=== PATIENT | female | born 1985 | race Caucasian/White ===

== ENCOUNTER 2019-08-20 10:23 | Inpatient (IN) | payer OTHER ==
[~2019-08-20] VITALS: Ht 165.1 cm; Wt 65.8 kg
[2019-08-20] VITALS (8 sets, daily range): BP systolic 85–115; BP diastolic 51–68
[~2019-08-20 10:23] MED LIST: ALBUTEROL2.5 MG/3 M INH
--- NOTE | 2019-08-20 10:26 | NUR ---
ED Nurse Note: Pt BIBA from the street due to behavioral complaint. Per paramedics, pt was crawling on the street, acting bizzare. Upon arrival, pt acting restless, present with flights of ideas, stated " I am here, you are here. I am in this room, you are in this room" Only answers some questions appropriately. When asked, pt denies any SI/HI. Belongings are in locker #3. Vital signs stable at this time. Will cont to monitor.
[2019-08-20] MEDS ORDERED: Haloperidol 5mg/ml Inj IM ONE (10:30)
[2019-08-20] MEDS ORDERED: DiphenhydrAMINE 50mg/ml Inj IVP ONE (10:30)
[2019-08-20] MEDS ORDERED: LORazepam Inj 2mg/ml 1ml IV ONE (10:30)
--- NOTE | 2019-08-20 10:50 | NUR ---
PATIENT IS SLEEPING SINCE THE MEDICATION SO NO SITTER PROVIDED
--- NOTE | 2019-08-20 11:21 | NUR ---
ED Nurse Note: Potassium level 2.3, ERMD made aware.
[2019-08-20 11:29] LABS: HEMATOCRIT 34.9 % (37.0-47.0); HEMOGLOBIN 11.8 G/DL (12.0-16.0); MEAN CORPUSCULAR VOLUME 93 FL (80-99); PLATELET COUNT 305 K/UL (150-450); RED BLOOD COUNT 3.74 M/UL (4.20-5.40); RED CELL DISTRIBUTION WIDTH 11.8 % (11.6-14.8); WHITE BLOOD COUNT 19.6 K/UL (4.8-10.8)
[2019-08-20 11:30] LABS: APPEARANCE,URINE CLEAR; BILIRUBIN, URINE NEGATIVE (NEGATIVE); GLUCOSE, URINE (UA) NEGATIVE (NEGATIVE); KETONES,URINE 4+ (NEGATIVE); LEUKOCYTE ESTERASE ,URINE 1+ (NEGATIVE); NITRITE,URINE NEGATIVE (NEGATIVE); PH,URINE 5 (4.5-8.0); PROTEIN,URINE 2+ (NEGATIVE); UROBILINOGEN,URINE 1 MG/DL (0.0-1.0)
[2019-08-20 11:34] LABS: COLOR,URINE YELLOW
[2019-08-20 11:52] LABS: ALANINE AMINOTRANSFERASE 28 U/L (12-78); ALBUMIN 3.3 G/DL (3.4-5.0); ALBUMIN/GLOBULIN RATIO 0.9 (1.0-2.7); ALKALINE PHOSPHATASE 57 U/L (46-116); ANION GAP 3 mmol/L (5-15); ASPARTATE AMINO TRANSFERASE 39 U/L (15-37); BILIRUBIN,TOTAL 0.6 MG/DL (0.2-1.0); BLOOD UREA NITROGEN 8 mg/dL (7-18); CALCIUM 8.6 MG/DL (8.5-10.1); CARBON DIOXIDE 34 MMOL/L (21-32); CHLORIDE 98 MMOL/L (98-107); CREATININE 0.5 MG/DL (0.55-1.30); SODIUM 135 MMOL/L (136-145)
[2019-08-20 11:56] LABS: POTASSIUM 2.3 MMOL/L (3.5-5.1)
--- NOTE | 2019-08-20 12:00 | NUR ---
continues to sleep
--- NOTE | 2019-08-20 13:26 | Emergency Room Report ---
History of Present Illness General Chief Complaint: Behavioral Complaint Source: Patient (Vincent Mcguire DO) Present Illness HPI Patient presents with paramedics for reports of agitation Upon arrival the patient has bizarre thought process agitated flight of thought Appears disheveled Obtaining history from the patient was difficult Patient would not focus to answer questions appropriately There was no reports of vomiting or diarrhea denies any chest pain otherwise history of present illness remains significantly limited (BravoVincent lim ) Allergies: Coded Allergies: CHLORPROMAZINE (Verified Allergy, Unknown, 08/20/19) Patient History Past Medical History: see triage record Last Menstrual Period: Unknown Now: No - Unknown Reviewed Nursing Documentation: PMH: Agreed; PSxH: Agreed (BravoVincent lim ) Nursing Documentation-PMH Past Medical History Deferred: Pt Cognitively Impaired Past Medical History: No Stated History (ValentinangeliraphaelVincent JAMISON) Review of Systems All Other Systems: limited (BravoVincent lim ) Physical Exam Vital Signs Date Time Temp Pulse Resp B/P (MAP) Pulse Ox O2 Delivery O2 Flow Rate FiO2 08/20/19 10:15 97.9 90 16 122/84 (97) 98 Ambu-Bag Sp02 EP Interpretation: reviewed, normal General Appearance: mild distress - Appears disheveled and agitated Head: normocephalic, atraumatic Eyes: bilateral eye PERRL, bilateral eye EOMI ENT: dry mucus membranes Neck: supple Respiratory: lungs clear, no respiratory distress, no retraction Cardiovascular #1: regular rate, rhythm Gastrointestinal: non tender, soft Genitourinary: no CVA tenderness Musculoskeletal: normal inspection Neurologic: alert, responsive Psychiatric: anxious Skin: no rash - Appears disheveled Lymphatic: no adenopathy (BravoVincent lim ) Medical Decision Making Diagnostic Impression: Primary Impression: Hypokalemia Additional Impression: Agitation ER Course Given the above history exam and presentation multiple differentials and consideration patient had extensive blood work initiated for further medical clearance She does show significant abnormalities including elevated white blood cell count potassium level is low patient is having these addressed Was positive for amphetamine and possible demargination causing elevated white blood cell count is entertained I do not see any obvious source of obvious infection Meningitis and encephalopathy is also entertained however less likely No obvious rashes noted patient is further hydrated and will have repeat blood work Labs Test 08/20/19 11:11 White Blood Count 19.6 K/UL (4.8-10.8) Red Blood Count 3.74 M/UL (4.20-5.40) Hemoglobin 11.8 G/DL (12.0-16.0) Hematocrit 34.9 % (37.0-47.0) Mean Corpuscular Volume 93 FL (80-99) Mean Corpuscular Hemoglobin 31.5 PG (27.0-31.0) Mean Corpuscular Hemoglobin Concent 33.8 G/DL (32.0-36.0) Red Cell Distribution Width 11.8 % (11.6-14.8) Platelet Count 305 K/UL (150-450) Mean Platelet Volume 7.5 FL (6.5-10.1) Neutrophils (%) (Auto) % (45.0-75.0) Lymphocytes (%) (Auto) % (20.0-45.0) Monocytes (%) (Auto) % (1.0-10.0) Eosinophils (%) (Auto) % (0.0-3.0) Basophils (%) (Auto) % (0.0-2.0) Differential Total Cells Counted 100 Neutrophils % (Manual) 84 % (45-75) Lymphocytes % (Manual) 12 % (20-45) Monocytes % (Manual) 4 % (1-10) Eosinophils % (Manual) 0 % (0-3) Basophils % (Manual) 0 % (0-2) Band Neutrophils 0 % (0-8) Platelet Estimate Adequate Platelet Morphology Normal Polychromasia 1+ Urine Color Yellow Urine Appearance Clear Urine pH 5 (4.5-8.0) Urine Specific [place] 1.020 (1.005-1.035) Urine Protein 2+ (NEGATIVE) Urine Glucose (UA) Negative (NEGATIVE) Urine Ketones 4+ (NEGATIVE) Urine Blood 1+ (NEGATIVE) Urine Nitrite Negative (NEGATIVE) Urine Bilirubin Negative (NEGATIVE) Urine Urobilinogen 1 MG/DL (0.0-1.0) Urine Leukocyte Esterase 1+ (NEGATIVE) Urine RBC 2-4 /HPF (0 - 2) Urine WBC 2-4 /HPF (0 - 2) Urine Squamous Epithelial Cells Few /LPF (NONE/OCC) Urine Amorphous Sediment Few /LPF (NONE) Urine Bacteria Few /HPF (NONE) Urine Mucus Moderate /LPF (NONE/OCC) Urine HCG, Qualitative Negative (NEGATIVE) Sodium Level 135 MMOL/L (136-145) Potassium Level 2.3 MMOL/L (3.5-5.1) Chloride Level 98 MMOL/L (98-107) Carbon Dioxide Level 34 MMOL/L (21-32) Anion Gap 3 mmol/L (5-15) Blood Urea Nitrogen 8 mg/dL (7-18) Creatinine 0.5 MG/DL (0.55-1.30) Estimat Glomerular Filtration Rate > 60 mL/min (>60) Glucose Level 98 MG/DL (74-106) Calcium Level 8.6 MG/DL (8.5-10.1) Total Bilirubin 0.6 MG/DL (0.2-1.0) Aspartate Amino Transf (AST/SGOT) 39 U/L (15-37) Alanine Aminotransferase (ALT/SGPT) 28 U/L (12-78) Alkaline Phosphatase 57 U/L (46-116) Total Protein 7.0 G/DL (6.4-8.2) Albumin 3.3 G/DL (3.4-5.0) Globulin 3.7 g/dL Albumin/Globulin Ratio 0.9 (1.0-2.7) Salicylates Level 0.9 ug/mL (2.8-20) Urine Opiates Screen Negative (NEGATIVE) Acetaminophen Level < 2 MCG/ML (10-30) Urine Barbiturates Screen Negative (NEGATIVE) Phencyclidine (PCP) Screen Negative (NEGATIVE) Urine Amphetamines Screen Positive (NEGATIVE) Urine Benzodiazepines Screen Negative (NEGATIVE) Urine Cocaine Screen Negative (NEGATIVE) Urine Marijuana (THC) Screen Negative (NEGATIVE) Serum Alcohol < 3 mg/dL (Vincent Mcguire DO) Last Vital Signs Date Time Temp Pulse Resp B/P (MAP) Pulse Ox O2 Delivery O2 Flow Rate FiO2 08/20/19 12:18 99 19 85/51 95 Room Air 08/20/19 10:15 97.9 Status: improved (Vincent Mcguire DO) Reevaluation Time: 17:05 Reevaluation Impression Assumed care of the patient from Dr. Mcguire at approximately 1400. Briefly this is a 33-year-old female who presented for evaluation of agitation. She was given Ativan and Haldol for sedation but was found to have an elevated white count and hypokalemia with the initial reading of 2.3. She is receiving IV fluids, potassium IV with plan to repeat CBC and BMP. Chest x-ray was performed and is now returned showing no obvious signs of infection. Repeat labs show persistently low potassium though white blood cell count has improved. She is tested positive for amphetamines. She will be admitted for hypokalemia work-up on telemetry. (Alonso Flowers MD) Disposition: ADMITTED INPATIENT Condition: Serious Referrals: NOT CHOSEN IPA/,REFERRING (PCP) Vincent Mcguire DO Aug 20, 2019 13:26 Alonso Flowers MD Aug 20, 2019 17:07
--- NOTE | 2019-08-20 15:01 | Diagnostic Imaging Report ---
EXAM: XR Chest, 1 View CLINICAL HISTORY: COUGH TECHNIQUE: Frontal view of the chest. COMPARISON: No relevant prior studies available. FINDINGS: Lungs: Mild atelectasis left lower lung. Lungs otherwise clear. Pleural space: Unremarkable. No pneumothorax. Heart: Unremarkable. No cardiomegaly. Mediastinum: Unremarkable. Bones joints: Unremarkable. IMPRESSION: Mild atelectasis left lower lung. Lungs otherwise clear.
--- NOTE | 2019-08-20 15:54 | NUR ---
ED Nurse Note: Pt sleeping comfortably in bed, easily arousable, lung sounds clear. Vital signs stable. NAD. Will cont to monitor.
--- NOTE | 2019-08-20 15:55 | NUR ---
ED Nurse Note: Blood drawn and sent to lab.
--- NOTE | 2019-08-20 16:00 | NUR ---
ED Nurse Note: Second Potassium 2.6, Dr Flowers notified. Awaiting for further order.
[2019-08-20 16:23] LABS: ANION GAP 4 mmol/L (5-15); BLOOD UREA NITROGEN 6 mg/dL (7-18); CALCIUM 7.5 MG/DL (8.5-10.1); CARBON DIOXIDE 28 MMOL/L (21-32); CHLORIDE 107 MMOL/L (98-107); CREATININE 0.4 MG/DL (0.55-1.30); SODIUM 141 MMOL/L (136-145)
[2019-08-20 16:26] LABS: BASOPHILS % (AUTO) 0.9 % (0.0-2.0); EOSINOPHILS % (AUTO) 0.8 % (0.0-3.0); HEMATOCRIT 27.9 % (37.0-47.0); LYMPHOCYTES % (AUTO) 27.4 % (20.0-45.0); MEAN CORPUSCULAR VOLUME 90 FL (80-99); MONOCYTES % (AUTO) 10.9 % (1.0-10.0); NEUTROPHILS % (AUTO) 60.1 % (45.0-75.0); PLATELET COUNT 254 K/UL (150-450); WHITE BLOOD COUNT 14.2 K/UL (4.8-10.8)
[2019-08-20 16:28] LABS: POTASSIUM 2.6 MMOL/L (3.5-5.1)
--- NOTE | 2019-08-20 17:21 | NUR ---
ED Nurse Note: Pt is still sleeping, easily arousable. Breathinf even, unlabored. NAD. Will cont to monitor.
--- NOTE | 2019-08-20 18:30 | NUR ---
ED Nurse Note: Pt is in NO acute distress. Vital signs still stable. Comfortably on bed. Ridge and juice offered.
--- NOTE | 2019-08-20 19:03 | NUR ---
ED Nurse Note: Report given to RAAD Vaca
--- NOTE | 2019-08-20 19:05 | NUR ---
ED Nurse Note: Got report from Shraddha Feliciano RN. Patient is sleeping, calm and cooperative, no acute disstress noticed.
--- NOTE | 2019-08-20 21:15 | NUR ---
NURSE NOTES: Received report from RAAD Vaca. Patient was transferred from ED to telemetry via gurney with phototypesetting equipment monitor, without any incident. Patient is awake, lying in semi lópez's; resting comfortably. A/Ox3. Denies pain at this time. No signs of acute distress noted. Placed tele box, SR on the monitor,94bpm. Body assessment done with no skin issues. Belongings list checked with transferring RN. Paged Dr. Esposito for admitting orders, awaiting for callback. C Addendum: 08/20/19 at 2236 by Xenia Vizcarra RN Comfort care provided. Will continue to monitor. Addendum: 08/21/19 at 0739 by Xenia Vizcarra RN Sitter at bedside.
--- NOTE | 2019-08-20 21:32 | NUR ---
ED Nurse Note: Patient was admited to Tele due to hypokalemia. Patient was transfered to the unit via gurney by ACLS protocol, with all belongings. Patient AAO x3, VSS at this time, skin is dry warm to touch.
[2019-08-20] MEDS ORDERED: D5 1/2NS 1,000 ML IV SCH (23:00)
[2019-08-20] MEDS ORDERED: LORazepam 1mg tab ORAL PRN (23:00)
[2019-08-21] VITALS: BP 110/70
[2019-08-21] MEDS: D5 1/2NS w/KCl 40meq 1000ml 1,000 ML IV SCH ×2 (00:33→12:37)
--- NOTE | 2019-08-21 01:55 | NUR ---
NURSE NOTES: Resting throughout the night. No significant change of condition noted. Will continue to monitor.
--- NOTE | 2019-08-21 02:22 | NUR ---
Bren at bedside. Addendum: 08/21/19 at 0739 by Xenia Vizcarra RN Wrong time.
[2019-08-21 04:00] VITALS: BP 106/57
--- NOTE | 2019-08-21 07:20 | NUR ---
HAND-OFF: Report given to RAAD Wilson. Plan of care endorsed.
--- NOTE | 2019-08-21 07:20 | NUR ---
NURSE NOTES: I received the patient resting in bed. Sitter at the patient's bedside. Patient does not display any signs of distress or SOB. Bed in the lowest position and call light within reach. I will continue to monitor the patient and implement care.
[2019-08-21 07:39] LABS: BASOPHILS % (AUTO) 1.3 % (0.0-2.0); EOSINOPHILS % (AUTO) 3.2 % (0.0-3.0); HEMATOCRIT 28.7 % (37.0-47.0); HEMOGLOBIN 10.1 G/DL (12.0-16.0); LYMPHOCYTES % (AUTO) 42.8 % (20.0-45.0); MEAN CORPUSCULAR VOLUME 94 FL (80-99); MONOCYTES % (AUTO) 10.8 % (1.0-10.0); NEUTROPHILS % (AUTO) 41.8 % (45.0-75.0); PLATELET COUNT 248 K/UL (150-450); RED BLOOD COUNT 3.07 M/UL (4.20-5.40); RED CELL DISTRIBUTION WIDTH 12.2 % (11.6-14.8); WHITE BLOOD COUNT 8.6 K/UL (4.8-10.8)
[2019-08-21 07:54] LABS: % IRON SATURATION 9 % (15-50); IRON 20 ug/dL (50-175); TOTAL IRON BINDING CAPACITY 234 ug/dL (250-450)
[2019-08-21 08:00] VITALS: BP 104/62
[2019-08-21 08:13] LABS: ALANINE AMINOTRANSFERASE 28 U/L (12-78); ALBUMIN 2.4 G/DL (3.4-5.0); ALBUMIN/GLOBULIN RATIO 0.8 (1.0-2.7); ALKALINE PHOSPHATASE 48 U/L (46-116); ANION GAP 7 mmol/L (5-15); ASPARTATE AMINO TRANSFERASE 29 U/L (15-37); BILIRUBIN,TOTAL 0.3 MG/DL (0.2-1.0); BLOOD UREA NITROGEN 6 mg/dL (7-18); CALCIUM 7.6 MG/DL (8.5-10.1); CARBON DIOXIDE 28 MMOL/L (21-32); CHLORIDE 109 MMOL/L (98-107); CREATININE 0.5 MG/DL (0.55-1.30); FERRITIN 42 NG/ML (8-388); PHOSPHORUS 2.7 MG/DL (2.5-4.9); SODIUM 144 MMOL/L (136-145)
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
--- NOTE | 2019-08-21 11:26 | Consultation ---
Consult Note Consult Note asked to manage hypokalemia ER: Chief Complaint: Behavioral Complaint Patient presents with paramedics for reports of agitation Upon arrival the patient has bizarre thought process agitated flight of thought Appears disheveled Obtaining history from the patient was difficult Patient would not focus to answer questions appropriately There was no reports of vomiting or diarrhea denies any chest pain otherwise history of present illness remains significantly limited Allergies: CHLORPROMAZINE (Verified Allergy, Unknown, 08/20/19) Past Medical History Deferred: Pt Cognitively Impaired Past Medical History: No Stated History Assessment/Plan HypoKalemia Amphetamin abuse Anemia UTI Psych history? K supplement antibiotics Per Psych to Med Surg Steffen Ramos MD Aug 21, 2019 11:26
[2019-08-21 12:00] VITALS: BP_SYST 104; BP_SYST 120; BP_DIAS 63; BP_DIAS 71
[2019-08-21] MEDS ORDERED: LORazepam 1mg tab ORAL PRN (12:15)
--- NOTE | 2019-08-21 15:03 | Cardiac Electrophysiology PN ---
Subjective Subjective [id number] Objective Last 24 Hour Vital Signs Date Time Temp Pulse Resp B/P (MAP) Pulse Ox O2 Delivery O2 Flow Rate FiO2 08/21/19 12:00 97.0 89 20 104/63 (77) 100 08/21/19 12:00 96 08/21/19 09:00 Room Air 08/21/19 08:00 98.3 101 20 104/62 (76) 98 08/21/19 07:56 99 08/21/19 04:00 97.9 94 20 106/57 (73) 97 08/21/19 04:00 88 08/21/19 00:43 Room Air 08/21/19 00:00 98.2 92 19 110/70 (83) 97 08/21/19 00:00 87 08/20/19 21:23 98.0 84 18 96/64 99 Room Air 08/20/19 21:23 98.0 84 18 96/64 99 Room Air 08/20/19 21:15 94 08/20/19 21:15 98.4 82 20 98/60 (73) 95 08/20/19 20:17 98.0 84 18 96/64 99 Room Air 08/20/19 18:49 98.0 85 20 95/63 99 Room Air 08/20/19 18:03 98.0 93 19 95/63 97 Room Air 08/20/19 16:00 97.9 79 21 101/65 100 Room Air Intake and Output 08/20/19 08/21/19 18:59 06:59 Intake Total 1200 ml 453.75 ml Balance 1200 ml 453.75 ml Intake Oral 120 ml IV Total 1200 ml 333.75 ml # Voids 1 1 # Bowel Movements 1 Laboratory Tests Test 08/20/19 16:00 08/21/19 06:14 White Blood Count 14.2 K/UL (4.8-10.8) H 8.6 K/UL (4.8-10.8) Red Blood Count 3.10 M/UL (4.20-5.40) L 3.07 M/UL (4.20-5.40) L Hemoglobin 10.0 G/DL (12.0-16.0) L 10.1 G/DL (12.0-16.0) L Hematocrit 27.9 % (37.0-47.0) L 28.7 % (37.0-47.0) L Mean Corpuscular Volume 90 FL (80-99) 94 FL (80-99) Mean Corpuscular Hemoglobin 32.1 PG (27.0-31.0) H 32.9 PG (27.0-31.0) H Mean Corpuscular Hemoglobin Concent 35.7 G/DL (32.0-36.0) 35.1 G/DL (32.0-36.0) Red Cell Distribution Width 11.0 % (11.6-14.8) L 12.2 % (11.6-14.8) Platelet Count 254 K/UL (150-450) 248 K/UL (150-450) Mean Platelet Volume 7.1 FL (6.5-10.1) 7.0 FL (6.5-10.1) Neutrophils (%) (Auto) 60.1 % (45.0-75.0) 41.8 % (45.0-75.0) L Lymphocytes (%) (Auto) 27.4 % (20.0-45.0) 42.8 % (20.0-45.0) Monocytes (%) (Auto) 10.9 % (1.0-10.0) H 10.8 % (1.0-10.0) H Eosinophils (%) (Auto) 0.8 % (0.0-3.0) 3.2 % (0.0-3.0) H Basophils (%) (Auto) 0.9 % (0.0-2.0) 1.3 % (0.0-2.0) Sodium Level 141 MMOL/L (136-145) 144 MMOL/L (136-145) Potassium Level 2.6 MMOL/L (3.5-5.1) *L 3.0 MMOL/L (3.5-5.1) L Chloride Level 107 MMOL/L (98-107) 109 MMOL/L (98-107) H Carbon Dioxide Level 28 MMOL/L (21-32) 28 MMOL/L (21-32) Anion Gap 4 mmol/L (5-15) L 7 mmol/L (5-15) Blood Urea Nitrogen 6 mg/dL (7-18) L 6 mg/dL (7-18) L Creatinine 0.4 MG/DL (0.55-1.30) L 0.5 MG/DL (0.55-1.30) L Estimat Glomerular Filtration Rate > 60 mL/min (>60) > 60 mL/min (>60) Glucose Level 88 MG/DL (74-106) 92 MG/DL (74-106) Calcium Level 7.5 MG/DL (8.5-10.1) L 7.6 MG/DL (8.5-10.1) L Uric Acid 4.0 MG/DL (2.6-7.2) Phosphorus Level 2.7 MG/DL (2.5-4.9) Magnesium Level 1.7 MG/DL (1.8-2.4) L Iron Level 20 ug/dL (50-175) L Total Iron Binding Capacity 234 ug/dL (250-450) L Percent Iron Saturation 9 % (15-50) L Unsaturated Iron Binding 214 ug/dL (112-346) Ferritin 42 NG/ML (8-388) Total Bilirubin 0.3 MG/DL (0.2-1.0) Aspartate Amino Transf (AST/SGOT) 29 U/L (15-37) Alanine Aminotransferase (ALT/SGPT) 28 U/L (12-78) Alkaline Phosphatase 48 U/L (46-116) C-Reactive Protein, Quantitative 3.3 mg/dL (0.00-0.90) H Pro-B-Type Natriuretic Peptide 120 pg/mL (0-125) Total Protein 5.4 G/DL (6.4-8.2) L Albumin 2.4 G/DL (3.4-5.0) L Globulin 3.0 g/dL Albumin/Globulin Ratio 0.8 (1.0-2.7) L Vitamin B12 Level 576 PG/ML (193-986) Folate 19.3 NG/ML (8.6-58.9) Thyroid Stimulating Hormone (TSH) 0.841 uiU/mL (0.358-3.740) Hepatitis B Surface Antigen Pending Hepatitis B Surface Antibody, Quant Pending Hepatitis C Antibody Pending HIV (1&2) Antibody Rapid Negative (NEGATIVE) Microbiology Date/Time Source Procedure Growth Status 08/20/19 19:00 Rectum Received Kali Mendoza MD Aug 21, 2019 15:03
--- NOTE | 2019-08-21 15:15 | History and Physical Report ---
DATE OF ADMISSION: 08/20/2019 TIME SEEN: 8 a.m. CONSULTANTS: 1. Cyrus Caruso M.D. 2. Steffen Ramos M.D. 3. Kali Mendoza M.D. 4. Damian Cui M.D. CHIEF COMPLAINT: Confusion, hypokalemia, hypotension. BRIEF HISTORY: The patient is a 33-year-old female, homeless, presents to [place] ER last night with above-mentioned diagnoses, admitted to telemetry for further care. Currently, slightly confused in bed. No complaint. REVIEW OF SYSTEMS: No chest pain. No shortness of breath. No nausea, vomiting, or diarrhea. PAST MEDICAL HISTORY: None. PAST SURGICAL HISTORY: None. MEDICATIONS: Include lorazepam, Zofran, IV fluids, potassium, diphenylamine, Haldol. ALLERGIES: Chlorpromazine. SOCIAL HISTORY: Positive smoke. Positive alcohol. Positive meth use. OBJECTIVE: GENERAL: Confused and calm in bed, oriented x1, in no acute distress. VITAL SIGNS: Temperature 97 degrees, pulse 88, respiratory rate 20, blood pressure 106/57. CARDIOVASCULAR: No murmurs. LUNGS: Distant and clear. ABDOMEN: Bowel sound positive. Nontender. Nondistended. EXTREMITIES: No cyanosis or edema. NEUROLOGIC: The patient moves all extremities, slightly weak LABORATORY AND DIAGNOSTIC DATA: Hemoglobin and hematocrit of 10/28, otherwise CBC is normal. Initial white count 19 and now it is back to 8.6. BMP shows potassium 3.0 initially 2.3, chloride 109, BUN and creatinine 6 and 0.5. Calcium 7.6. Albumin 2.4. Urine positive for amphetamine. Urinalysis 1+ leukocyte esterase. ASSESSMENT: 1. Hypokalemia. 2. Hypotension. 3. Malnutrition. 4. Drug abuse. 5. 6. Leukocytosis which has resolved. 7. Anemia. 8. Urinary tract infection. 9. Drug abuse. PLAN: 1. Detox. 2. Dietary followup. 3. Psych treatment. 4. Antibiotics per Infectious Diseases. 5. Nephrology followup. 6. PT, dietary evaluation. 7. Check labs in the morning. 8. We will continue to follow the patient. Leonel Esposito D.O. DR: Jennie JOB#: [id number] CC:
[2019-08-21 15:54] VITALS: BP 111/69
--- NOTE | 2019-08-21 16:20 | NUR ---
TRANSFER TO FLOOR: Patient transferred to [facility], per Dr. Rachel MD. Report given to Amy Riveor RN. Belongings reviewed with Amy Rivero RN.
--- NOTE | 2019-08-21 16:57 | NUR ---
NURSE NOTES: Received report from Alex SHANKAR, pt awake, A/O x 2-3, calm, sitter at bedside. belongings at bedside. Denies pain, no SOB noted. bed in low position, bed alarm on, call light within reach, fall precaution maintained.
[2019-08-21 20:00] VITALS: BP 110/78
--- NOTE | 2019-08-21 20:43 | NUR ---
NURSE NOTES: received pt in bed. AAOx2 in room air. no sitter this time at bedside. no acute distress this time noted. call light within reach. bed is lowest position and locked. will continue to provide plan of care.
[2019-08-22] VITALS: BP_SYST 100; BP_SYST 110; BP_DIAS 62; BP_DIAS 68
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
[2019-08-22] MEDS: D5 1/2NS w/KCl 40meq 1000ml 1,000 ML IV SCH (01:44)
[2019-08-22 03:09] LABS: HEMATOCRIT 28.9 % (37.0-47.0); HEMOGLOBIN 10.1 G/DL (12.0-16.0); MEAN CORPUSCULAR VOLUME 91 FL (80-99); PLATELET COUNT 246 K/UL (150-450); RED BLOOD COUNT 3.17 M/UL (4.20-5.40); RED CELL DISTRIBUTION WIDTH 11.4 % (11.6-14.8); WHITE BLOOD COUNT 8.1 K/UL (4.8-10.8)
[2019-08-22 03:19] LABS: ANION GAP 7 mmol/L (5-15); BLOOD UREA NITROGEN 7 mg/dL (7-18); CALCIUM 8.3 MG/DL (8.5-10.1); CARBON DIOXIDE 25 MMOL/L (21-32); CHLORIDE 112 MMOL/L (98-107); CREATININE 0.6 MG/DL (0.55-1.30); POTASSIUM 4.2 MMOL/L (3.5-5.1); SODIUM 144 MMOL/L (136-145)
[2019-08-22 04:02] VITALS: BP 106/67
--- NOTE | 2019-08-22 07:20 | NUR ---
NURSE NOTES: Pt awake, A/O x 2-3, calm, and cooperative, denies pain, no SOB noted, pts on IVF , VS stable, call light within reach, bed in low position, bed alarm on, fall and asp precaution maintained. will continue to monitor. Addendum: 08/22/19 at 1436 by Bruna Rivero RN sitter at bedside.
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
--- NOTE | 2019-08-22 09:20 | General Progress Note ---
Assessment/Plan Problem List: (1) Malnutrition ICD Codes: E46 - Unspecified protein-calorie malnutrition SNOMED: 37186311 (2) UTI (urinary tract infection) ICD Codes: N39.0 - Urinary tract infection, site not specified SNOMED: 00308496 (3) Anemia ICD Codes: D64.9 - Anemia, unspecified SNOMED: 421125763 (4) Agitation ICD Codes: R45.1 - Restlessness and agitation SNOMED: 217098740 (5) Hypokalemia ICD Codes: E87.6 - Hypokalemia SNOMED: 91462673 Status: stable, progressing Assessment/Plan: pt diet abx cbc bmp am dc if clear Subjective Constitutional: Reports: weakness Allergies: Coded Allergies: CHLORPROMAZINE (Verified Allergy, Unknown, 08/20/19) All Systems: reviewed and negative except above Subjective sleepy calm Objective Last 24 Hour Vital Signs Date Time Temp Pulse Resp B/P (MAP) Pulse Ox O2 Delivery O2 Flow Rate FiO2 08/22/19 09:00 Room Air 08/22/19 04:02 97.6 84 20 106/67 (80) 98 08/22/19 00:26 87 88 80 08/22/19 00:00 98.2 84 20 110/68 (82) 97 08/21/19 20:47 Room Air 08/21/19 20:00 98.3 68 18 110/78 (89) 98 08/21/19 15:55 82 94 99 08/21/19 15:54 98.2 82 20 111/69 (83) 100 08/21/19 12:00 97.0 89 20 104/63 (77) 100 08/21/19 12:00 96 Intake and Output 08/21/19 08/22/19 19:00 07:00 Intake Total 800 ml 1420 ml Balance 800 ml 1420 ml Intake Oral 200 ml 600 ml IV Total 600 ml 820 ml # Voids 2 2 # Bowel Movements 2 Laboratory Tests 08/21/19 19:48: Troponin I 0.026 08/22/19 03:00: Troponin I 0.000, White Blood Count 8.1, Red Blood Count 3.17L, Hemoglobin 10.1L , Hematocrit 28.9L, Mean Corpuscular Volume 91, Mean Corpuscular Hemoglobin 31.8H, Mean Corpuscular Hemoglobin Concent 34.8, Red Cell Distribution Width 11.4L, Platelet Count 246, Mean Platelet Volume 6.9, Neutrophils (%) (Auto) , Lymphocytes (%) (Auto) , Monocytes (%) (Auto) , Eosinophils (%) (Auto) , Basophils (%) (Auto) , Sodium Level 144, Potassium Level 4.2, Chloride Level 112H, Carbon Dioxide Level 25, Anion Gap 7, Blood Urea Nitrogen 7, Creatinine 0.6, Estimat Glomerular Filtration Rate > 60, Glucose Level 91, Calcium Level 8.3L Height (Feet): 5 Height (Inches): 5.00 Weight (Pounds): 145 General Appearance: lethargic EENT: normal ENT inspection Neck: normal alignment Cardiovascular: normal peripheral pulses, normal rate, regular rhythm Respiratory/Chest: chest wall non-tender, lungs clear, normal breath sounds Abdomen: normal bowel sounds, non tender, soft Extremities: normal inspection Edema: no edema noted Arm (L), no edema noted Arm (R), no edema noted Leg (L), no edema noted Leg (R), no edema noted Pedal (L), no edema noted Pedal (R), no edema noted Generalized Neurologic: motor weakness Skin: normal pigmentation, warm/dry Leonel Esposito DO Aug 22, 2019 09:20
[2019-08-22 12:00] VITALS: BP 110/74
--- NOTE | 2019-08-22 12:21 | Nephrology Progress Note ---
Assessment/Plan Problem List: (1) Hypokalemia (2) Anemia (3) UTI (urinary tract infection) (4) Agitation Assessment HypoKalemia corrected Amphetamin abuse Anemia UTI Psych history? Plan K supplement antibiotics Per Psych to Med Surg stable from renal stand for DC Subjective ROS Limited/Unobtainable: No Objective Objective Last 24 Hour Vital Signs Date Time Temp Pulse Resp B/P (MAP) Pulse Ox O2 Delivery O2 Flow Rate FiO2 08/22/19 09:00 Room Air 08/22/19 09:00 91 95 107 08/22/19 04:02 97.6 84 20 106/67 (80) 98 08/22/19 00:26 87 88 80 08/22/19 00:00 98.2 84 20 110/68 (82) 97 08/21/19 20:47 Room Air 08/21/19 20:00 98.3 68 18 110/78 (89) 98 08/21/19 15:55 82 94 99 08/21/19 15:54 98.2 82 20 111/69 (83) 100 Intake and Output 08/21/19 08/22/19 19:00 07:00 Intake Total 800 ml 1420 ml Balance 800 ml 1420 ml Intake Oral 200 ml 600 ml IV Total 600 ml 820 ml # Voids 2 2 # Bowel Movements 2 Laboratory Tests 08/21/19 19:48: Troponin I 0.026 08/22/19 03:00: Troponin I 0.000, White Blood Count 8.1, Red Blood Count 3.17L, Hemoglobin 10.1L , Hematocrit 28.9L, Mean Corpuscular Volume 91, Mean Corpuscular Hemoglobin 31.8H, Mean Corpuscular Hemoglobin Concent 34.8, Red Cell Distribution Width 11.4L, Platelet Count 246, Mean Platelet Volume 6.9, Neutrophils (%) (Auto) , Lymphocytes (%) (Auto) , Monocytes (%) (Auto) , Eosinophils (%) (Auto) , Basophils (%) (Auto) , Sodium Level 144, Potassium Level 4.2, Chloride Level 112H, Carbon Dioxide Level 25, Anion Gap 7, Blood Urea Nitrogen 7, Creatinine 0.6, Estimat Glomerular Filtration Rate > 60, Glucose Level 91, Calcium Level 8.3L Height (Feet): 5 Height (Inches): 5.00 Weight (Pounds): 145 General Appearance: no apparent distress Steffen Ramos MD Aug 22, 2019 12:21
--- NOTE | 2019-08-22 15:24 | NUR ---
P.T Note: P.T evaluation completed. Pt is currently baseline independent in all areas of ADL/functional mobilities and gait/locomotions. Skilled P.T service is not warranted at this time. DC P.T service. Thank you for this referral.
--- NOTE | 2019-08-22 15:27 | NUR ---
*-* INSURANCE *-* ALL CLINICALS HAVE BEEN FAXED TO: Ashley Hernadez CM or tracking# [email or web address] #[phone] fax#[phone]
[2019-08-22 16:00] VITALS: BP 112/74
--- NOTE | 2019-08-22 17:55 | Cardiac Electrophysiology PN ---
Assessment/Plan Assessment/Plan 1. Severe hypokalemia. The patient did not have any cardiac arrhythmia. Potassium has been replaced and improved from 2.3 to 4. Her EKG is completely normal. 2. Tachycardia, likely related to anxiety. Echocardiogram Nl EF 3. Methamphetamine use. 4. History of psychosis. 5. Home less, awaiting placement DW RN Subjective Subjective No CP or SOB. EF 55%. Transferred to [facility] Objective Last 24 Hour Vital Signs Date Time Temp Pulse Resp B/P (MAP) Pulse Ox O2 Delivery O2 Flow Rate FiO2 08/22/19 17:00 98 94 96 08/22/19 16:00 97.5 88 20 112/74 (87) 98 08/22/19 12:00 97.5 88 20 110/74 (86) 98 08/22/19 09:00 Room Air 08/22/19 09:00 91 95 107 08/22/19 04:02 97.6 84 20 106/67 (80) 98 08/22/19 00:26 87 88 80 08/22/19 00:00 98.2 84 20 110/68 (82) 97 08/21/19 20:47 Room Air 08/21/19 20:00 98.3 68 18 110/78 (89) 98 Intake and Output 08/21/19 08/22/19 18:59 06:59 Intake Total 800 ml 1420 ml Balance 800 ml 1420 ml Intake Oral 200 ml 600 ml IV Total 600 ml 820 ml # Voids 2 2 # Bowel Movements 2 Laboratory Tests Test 08/21/19 19:48 08/22/19 03:00 Troponin I 0.026 ng/mL (0.000-0.056) 0.000 ng/mL (0.000-0.056) White Blood Count 8.1 K/UL (4.8-10.8) Red Blood Count 3.17 M/UL (4.20-5.40) L Hemoglobin 10.1 G/DL (12.0-16.0) L Hematocrit 28.9 % (37.0-47.0) L Mean Corpuscular Volume 91 FL (80-99) Mean Corpuscular Hemoglobin 31.8 PG (27.0-31.0) H Mean Corpuscular Hemoglobin Concent 34.8 G/DL (32.0-36.0) Red Cell Distribution Width 11.4 % (11.6-14.8) L Platelet Count 246 K/UL (150-450) Mean Platelet Volume 6.9 FL (6.5-10.1) Neutrophils (%) (Auto) % (45.0-75.0) Lymphocytes (%) (Auto) % (20.0-45.0) Monocytes (%) (Auto) % (1.0-10.0) Eosinophils (%) (Auto) % (0.0-3.0) Basophils (%) (Auto) % (0.0-2.0) Sodium Level 144 MMOL/L (136-145) Potassium Level 4.2 MMOL/L (3.5-5.1) Chloride Level 112 MMOL/L (98-107) H Carbon Dioxide Level 25 MMOL/L (21-32) Anion Gap 7 mmol/L (5-15) Blood Urea Nitrogen 7 mg/dL (7-18) Creatinine 0.6 MG/DL (0.55-1.30) Estimat Glomerular Filtration Rate > 60 mL/min (>60) Glucose Level 91 MG/DL (74-106) Calcium Level 8.3 MG/DL (8.5-10.1) L Microbiology Date/Time Source Procedure Growth Status 08/20/19 19:00 Nasal Nares MRSA Culture - Final NO METHICILLIN RESISTANT STAPH AUREUS... Complete 08/20/19 19:00 Rectum VRE Culture - Final NO VANCOMYCIN RESISTANT ENTEROCOCCUS ... Complete Objective HEAD AND NECK: Showed no JVD. LUNGS: Clear. CARDIOVASCULAR: Regular S1 and S2 with no gallop or murmur. ABDOMEN: Soft. EXTREMITIES: No pitting edema. Kali Mendoza MD Aug 22, 2019 17:55
--- NOTE | 2019-08-22 19:15 | NUR ---
NURSE NOTES: Received report from RAAD Mcfarland. Pt AAO x 3, on room air. IV intact and patent. No c/o pain/resp. distress noted at this time. Bed locked, lowest position, alarm on, side rails up x 2, call light within reach. Fall precaution maintained. Will continue to monitor and provide care.
--- NOTE | 2019-08-22 19:36 | NUR ---
HAND-OFF: Report given to Saba SHANKAR.
[2019-08-22 20:00] VITALS: BP 112/72
[2019-08-22] MEDS: Depakote ER 250mg tab ORAL SCH ×2 (20:44→20:48)
--- NOTE | 2019-08-22 20:49 | NUR ---
NURSE NOTES: Pt refused depakote and risperdol. Reinforced education but Pt still refused x 3. RN wasted meds.
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
--- NOTE | 2019-08-22 22:45 | Consultation ---
DATE OF CONSULTATION: 08/22/2019 HISTORY OF PRESENT ILLNESS: The patient is a 33-year-old female with a history of meth abuse who has been admitted to the hospital for medical stabilization. The patient is delusional and responding to internal stimuli, easily agitated, delusional, responding to internal stimuli, very labile. She presents with childlike behaviors. She was walking into the traffic and unable to recall what led her to this hospitalization. The patient has been using meth for several years. The patient started screaming and laughing during the evaluation. The patient is not suicidal and does not have any intention to end her life in the hospital. PAST PSYCHIATRIC HISTORY: The patient stated that she is on risperidone, Seroquel, and is seeing a psychiatrist outside of the hospital called Dr. Santos. She denies any suicide attempt in the past. Several psychiatric hospitalizations. PAST MEDICAL HISTORY: Significant for anemia, UTI. ALLERGIES: Chlorpromazine and haloperidol. SUBSTANCE ABUSE HISTORY: Significant for methamphetamine. Urine toxicology was positive for meth. MENTAL STATUS EXAMINATION: The patient is alert, oriented times self, place, and time. Poor insight into the situation she is in. Mood is labile. Affect is congruent with mood. Thought process is disorganized. Thought content, positive for delusions and hallucinations. Cognition is impaired. Insight and judgment non-existent. ASSESSMENT: [place] I Methamphetamine dependence, rule out schizophrenia [place] II Deferred. [place] III UTI. Malnutrition. [place] IV Moderate. [place] V 20. PLAN: 1. We will start the patient on antipsychotics, risperidone. 2. Discontinue Seroquel. 3. Depakote. 4. Ativan as needed. 5. Discontinue the sitter. Damian Cui M.D. DR: Minesh JOB#: [id number] CC:
--- NOTE | 2019-08-23 08:57 | Discharge Summary ---
Discharge Summary Discharge Summary _ DATE OF ADMISSION: 08/20/2019 DATE OF DISCHARGE: 08/22/2019 Patient eloped. REASON FOR ADMISSION: 33 years old homeless female with past medical history of amphetamine dependency , was brought by paramedics due to agitation. Patient was confused on arrival and unable to provide history. Laboratory work-up revealed significant leukocytosis with WBC 19.6, hemoglobin 11.8, hematocrit 24.9. Potassium 3.0. Magnesium 1.7. Stable renal parameters. Troponin negative. pro BNP 120. TSH within normal limits. Urinalysis revealed +1 leukocyte esterase, few bacteria and no pyuria. Urine test was negative. Urine toxicology screen was positive for amphetamine. Serum alcohol , Tylenol and salicylate levels were all negative. Chest x-ray revealed mild atelectasis left lower lung, otherwise lungs were clear. Patient subsequently admitted for further management. CONSULTANTS: facilities specialist Dr. Hoff ID specialist Dr. Mojiac enterprise analyst Dr. Ramos psychiatrist [facility] COURSE: Patient admitted to medical surgical floor and started on the IV hydration. Potassium and magnesium were replaced. Prior to elopement potassium 4.2. Patient initially exhibited sinus tachycardia , which per facilities specialist was most likely due to anxiety. Echocardiogram revealed preserved ejection fraction 55 to 60%. No evidence of pericardial effusion. Repeated troponin was negative as well. Tachycardia resolved. Leukocytosis trended down and resolved. No fevers. Chest x-ray did not show any evidence of pneumonia. Urinalysis revealed no evidence of UTI. Per ID specialist unlikely UTI or pneumonia. Leukocytosis was likely reactive and resolved without antimicrobials. ID specialist recommended to monitor patient off antibiotic. HIV test was nonreactive. Hemoglobin and hematocrit were closely monitored with goal to keep hemoglobin above 7. Anemia work-up revealed low iron. Prior to elopement hemoglobin 10.1 , hematocrit 28.9. Psychiatrist seen and evaluated patient . Patient was started on antipsychotic /risperidone. Seroquel was discontinued. Depakote was continued. Anxiolytic were on board as needed. No need for sitter. Supportive care provided. Dietary evaluation was completed , and recommendations implemented in plan of care. Patient clinically stabilized. Tachycardia resolved, potassium stable. Hemoglobin and hematocrit remained at baseline. Patient eloped with IV access at 20:55. Police was notified. FINAL DIAGNOSES: Severe hypokalemia -resolved Sinus tachycardia due to anxiety- resolved Anemia Agitation Methamphetamine abuse with dependency Malnutrition Homeless I have been assigned to dictate discharge summary for this account. I was not involved in the patient's management. Rosa Wei NP Aug 23, 2019 08:57
--- NOTE | 2019-08-23 15:20 | NUR ---
*-* INSURANCE *-* ALL CLINICALS HAVE BEEN FAXED TO: Ashley Hernadez CM or tracking# funmilayo #[phone] fax#[phone] Addendum: 08/23/19 at 1520 by GERI PAYAN CM Tj OSBORNE
--- NOTE | 2019-08-23 17:26 | Cardiology Report ---
APPROVED REPORT EKG Measurement Heart [id number] Normal sinus rhythm Normal ECG
== END 2019-08-22 20:15 | disposition left against medical advice (07) | DRG 425 ==
LOC: EDBD 10:23 → EMR 11:35 → MERGE 16:46 → 2E 16:46 → EDBEDREQ 17:14 → 4E 08-21 16:19
DX: E87.6 Hypokalemia (principal); R00.0 Tachycardia, unspecified; D64.9 Anemia, unspecified; R45.1 Restlessness and agitation; F15.20 Other stimulant dependence, uncomplicated; E46 Unspecified protein-calorie malnutrition; Z59.0 Homelessness; Z88.8 Allergy status to other drugs, medicaments and biological substances; N39.0 Urinary tract infection, site not specified; F29 Unspecified psychosis not due to a substance or known physiological condition; J98.11 Atelectasis
CPT/HCPCS: 36415; 71045; 80048; 80053; 80307; 81003; 81025; 82607; 82728; 82746; 83540; 83550; 83735; 83880; 84100; 84443; 84484; 84550; 85007; 85025; 86140; 86703; 86803; 87081; 87340; 87517; 93005; 93306; 96361; 96365; 96366; 96372; 96375; 99285; G0480; J7030; J8499